=== PATIENT | male | born 2000 | race African-American/Black ===

== ENCOUNTER 2023-12-11 17:28 | Emergency (ER) | payer MEDICAID, SELFPAY ==
--- NOTE | ~2023-12-11 | XR_ITS ---
EXAMINATION: RIGHT KNEE, RIGHT TIB-FIB CLINICAL INFORMATION: Trauma COMPARISON: None available. TECHNIQUE: 2 views tib-fib, 4 views knee FINDINGS: Intramedullary lauren is present through the tibia with 2 proximal and 2 distal screws. Old fractures are seen. There are multiple metallic fragments seen in the mid calf. Please correlate with history. No soft tissue disruption is seen. The knee joint appears normal. XR/XR tibia fibula RT 2V IMPRESSION: 1. No evidence of an acute traumatic injury. 2. Old fractures with intramedullary lauren in place. 3. Multiple metallic fragments in the mid calf.
--- NOTE | ~2023-12-11 | XR_ITS ---
EXAMINATION: RIGHT KNEE, RIGHT TIB-FIB CLINICAL INFORMATION: Trauma COMPARISON: None available. TECHNIQUE: 2 views tib-fib, 4 views knee FINDINGS: Intramedullary lauren is present through the tibia with 2 proximal and 2 distal screws. Old fractures are seen. There are multiple metallic fragments seen in the mid calf. Please correlate with history. No soft tissue disruption is seen. The knee joint appears normal. XR/XR knee RT 3V IMPRESSION: 1. No evidence of an acute traumatic injury. 2. Old fractures with intramedullary lauren in place. 3. Multiple metallic fragments in the mid calf.
[2023-12-11 17:31] VITALS: BP 137/78; PULSE 68; RESP 16; TEMP 37; O2SAT 100; BMI 24.0
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
[2023-12-11 20:43] VITALS: BP 123/80; PULSE 66; RESP 17; TEMP 36.3; O2SAT 98
[2023-12-11 22:48] VITALS: BP 133/86; PULSE 62; RESP 17; TEMP 36.6; O2SAT 99
[2023-12-11] MEDS: Ibuprofen 600 MG TABLET PO (22:56)
[2023-12-11 23:34] VITALS: BP 133/86; PULSE 62; RESP 17; TEMP 36.6; O2SAT 99
== END 2023-12-11 22:45 | disposition home or self-care (01) ==
PROVIDERS: Emergency Provider Emergency Medicine
DX: S83.91XA Sprain of unspecified site of right knee, initial encounter (principal); S80.11XA Contusion of right lower leg, initial encounter; W19.XXXA Unspecified fall, initial encounter; Y93.89 Activity, other specified; Y92.219 Unspecified school as the place of occurrence of the external cause; Y99.9 Unspecified external cause status; M79.661 Pain in right lower leg; M25.561 Pain in right knee
CPT/HCPCS: 73562; 73590; 99283

== ENCOUNTER 2024-01-20 22:43 | Emergency (ER) | payer MEDICAID, SELFPAY ==
--- NOTE | ~2024-01-20 | XR_ITS ---
EXAMINATION: XR HAND/WRIST, RIGHT CLINICAL INFORMATION: Injury. COMPARISON: None TECHNIQUE: PA, lateral, and oblique views of the right hand and wrist. FINDINGS: Intra-articular fracture is evident at the ulnar aspect of the hamate with slight dorsolateral displacement of the fracture fragments. Intra-articular fracture is also suspected at the base of the fourth metacarpal. No additional fractures are identified. Soft tissues are swollen. Joint spaces appear well-preserved. Chronic posttraumatic deformity is evident at the distal ulnar diaphysis with periosteal bone hypertrophy at the adjacent ulnar margin of the distal radial diaphysis. XR/XR hand wrist RT IMPRESSION: Intra-articular fractures at the fourth and fifth CMC joint involving the fourth metacarpal base and hamate.
[2024-01-20 23:00] VITALS: BP 141/69; PULSE 64; RESP 16; TEMP 36.8; O2SAT 99; BMI 27.7
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
[2024-01-21 03:00] VITALS: BP 133/78; PULSE 61; RESP 16; TEMP 36.7; O2SAT 100
[2024-01-21 03:23] VITALS: BP 133/78; PULSE 61; RESP 16; TEMP 36.7; O2SAT 100
== END 2024-01-21 03:27 | disposition home or self-care (01) ==
PROVIDERS: Emergency Provider Emergency Medicine
DX: S62.314A Displaced fracture of base of fourth metacarpal bone, right hand, initial encounter for closed fracture (principal); W22.8XXA Striking against or struck by other objects, initial encounter; Y93.9 Activity, unspecified; Y92.9 Unspecified place or not applicable; Y99.9 Unspecified external cause status; M79.641 Pain in right hand
CPT/HCPCS: 73110; 73130; 99283

== ENCOUNTER 2024-01-28 11:59 | Outpatient (REF) | payer MEDICAID, SELFPAY | END 2024-01-28 12:00 | disposition home or self-care (01) | LOC: HO.HOSX 11:59 | PROVIDERS: Visit Provider Orthopaedic Surgery | DX: Z13.89 Encounter for screening for other disorder (principal) ==

== ENCOUNTER 2024-01-29 09:59 | Outpatient (AMB) | payer MEDICAID, SELFPAY ==
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
[2024-01-29 10:13] VITALS: BMI 27.5
== END 2024-01-29 10:49 | disposition home or self-care (01) ==
PROVIDERS: Visit Provider Orthopaedic Surgery
DX: S62.344A Nondisplaced fracture of base of fourth metacarpal bone, right hand, initial encounter for closed fracture (principal); S62.141A Displaced fracture of body of hamate [unciform] bone, right wrist, initial encounter for closed fracture
CPT/HCPCS: 25630; 99203

== ENCOUNTER 2024-01-29 12:28 | Outpatient (REF) | payer MEDICAID, SELFPAY ==
--- NOTE | ~2024-01-29 | XR_ITS ---
EXAMINATION: XR HAND, RIGHT CLINICAL INFORMATION: Pain in right hand. COMPARISON: 01/20/2024. TECHNIQUE: 5 views of the right hand. FINDINGS: Radiopaque marker placed by technologist to indicate the area of concern as indicated by the patient along the shaft of the fifth metacarpal. Redemonstration of intra-articular fracture at the ulnar aspect of the hamate with slight dorsal lateral displacement of fracture fragments. Redemonstration of intra-articular fracture at the base of the fourth metacarpal. Soft tissue swelling. Redemonstration of deformity at the distal ulnar diaphysis with periosteal bone hypertrophy at the adjacent ulnar margin of the distal radial diaphysis, likely related to prior trauma, better imaged on the prior exam. XR/XR hand RT min 3V IMPRESSION: 1. Redemonstration of intra-articular fracture at the ulnar aspect of the hamate with slight dorsal lateral displacement of fracture fragments. 2. Redemonstration of intra-articular fracture at the base of the fourth metacarpal. 3. Redemonstration of deformity at the distal ulnar diaphysis with periosteal bone hypertrophy at the adjacent ulnar margin of the distal radial diaphysis, likely related to prior trauma, better imaged on the prior exam. 4. CT scan should be considered for better visualization as visualization limited due to overlying bony structures.
== END 2024-01-29 12:29 | disposition home or self-care (01) ==
LOC: HO.HOSX 12:28
PROVIDERS: Visit Provider Orthopaedic Surgery
DX: S62.141A Displaced fracture of body of hamate [unciform] bone, right wrist, initial encounter for closed fracture (principal); S62.344A Nondisplaced fracture of base of fourth metacarpal bone, right hand, initial encounter for closed fracture
CPT/HCPCS: 25630; 73130; 99202

== ENCOUNTER 2024-04-27 12:39 | Emergency (ER) | payer MEDICAID, SELFPAY ==
--- NOTE | ~2024-04-27 | XR_ITS ---
EXAMINATION: XR HAND/WRIST, RIGHT CLINICAL INFORMATION: Pain following injury. COMPARISON: Right hand radiographs dated 01/29/2024. TECHNIQUE: PA, lateral, and oblique views of the right hand and wrist. FINDINGS: Chronic fracture at the base of the fourth metacarpal as well as at the adjacent hamate in similar anatomic alignment. The posterior fracture fragment and radial aspect of the fourth metacarpal base appear more corticated. Exact degree of healing/osseous bridging not well evaluated on plain radiographs. No new fracture or dislocation. No joint space narrowing or marginal osteophytes. No osseous erosion. Dystrophic ossification and cortical irregularity seen across the distal radioulnar syndesmosis, likely indicating sequela of remote trauma. XR/XR hand wrist RT IMPRESSION: 1. Chronic fracture at the base of the fourth metacarpal as well as at the adjacent hamate in similar anatomic alignment. Exact degree of healing/osseous bridging not well evaluated on plain radiographs. 2. No new fracture or dislocation. Electronically signed by: Nick Sheppard MD 04/27/2024 02:17 PM EDT
[2024-04-27 14:20] VITALS: BP 144/50; PULSE 67; RESP 19; TEMP 36.6; O2SAT 98; BMI 27.4
--- NOTE | 2024-04-27 14:20 | ED_ITS ---
HPI - Extremity Injury (Upper) General Chief Complaint: Extremity Injury, Upper Stated Complaint: r hand inj Time Seen by Provider: 04/27/24 14:24 Source: patient, RN notes reviewed and old records reviewed Mode of arrival: ambulatory Limitations: no limitations History of Present Illness ED Provider: Cuco Hicks PA-C HPI narrative: 23 yo right hand dominant male presents to the ER for evaluation of right hand pain after he tripped and fell onto an outstretched hand while playing soccer last night. history of fracture in the right hand in january, was seen by orthopedics. he reports pain is in the same area as his prior injury as well as in the region of his 5th metacarpal. pain is worse with movement of the digits, making a fist and lifting. no numbness, tingling, weakness. no open wounds. MD complaint: injury to: right and hand Onset (ago): day(s) (1) Other injuries: none Handedness: right Place: outdoors Severity: moderate Severity scale (1-10): 5 Relieving factors: rest Exacerbating factors: movement of extremity Context: fall and sports-related injury Associated symptoms: denies other symptoms Related Data Previous Rx's ?Medication ?Instructions ?Recorded ibuprofen 600 mg tablet 600 mg PO Q8H PRN pain #14 tabs 01/21/24 ibuprofen 600 mg tablet 600 mg PO Q8H PRN pain #14 tabs 04/27/24 Allergies Allergy/AdvReac Type Severity Reaction Status Date / Time No Known Allergies Allergy Verified 04/27/24 14:23 Review of Systems Review of Systems: Yes all other systems are reviewed and are negative [facility] Social History Social History (Updated 01/29/24 @ 10:15 by KIM Hernández) Alcohol intake: current Alcohol intake frequency: a few times a month Patient Tobacco Use Status: Current everyday Tobacco user Advance Directives: No Advance Directives Information Provided: Yes Do you have a plan to hurt others: No Plan service: No Current occupational status: student Current occupation: right hand dominant Physical Exam Vital Signs: Vital Signs: Last Vital Signs Temp 98 F 04/27/24 14:35 Pulse 67 04/27/24 14:35 Resp 19 04/27/24 14:35 BP 144/50 H 04/27/24 14:35 Pulse Ox 98 04/27/24 14:35 O2 Del Method Room Air 04/27/24 14:35 BMI result Body Mass Index 27.4 Appearance: Alert. Oriented X3. No acute distress. HEENT: normal inspection CVS: Normal heart rate and rhythm. Pulses normal. Respiratory: No respiratory distress. Skin: Skin warm and dry. Normal skin color. Normal skin turgor. No rashes. Extremities: mild generalized swelling to the dorsum of the right hand, mostly on the medical aspect. tenderness and swelling over the 4th and 5th metacarpals. no crepitus. nontender right wrist with FROM. pain is thumb adduction to the 4th and 5th digits. cap refill <3 sec. pain with hand grasp Neuro: Oriented X 3. No motor deficit. No sensory deficit. Course Course Course Narrative: This is a Rapid Medical Examination (RME) performed by Cuco Hicks PA-C in triage. Full HPI, ROS, assessment and treatment plan per primary provider in the Main ED. 23 yo right hand dominant male presents to the ER for evaluation of right hand and wrist pain after he fell while playing soccer last night. swelling and tend erness over the 4th and 5th metacarpals, limited ROM of the wrist and hand due to pain. Plan: XR hand/wrist Medical Decision Making Medical Decision Making MDM Narrative: 23 yo right hand dominant male with history of right 4th metacarpal bone fracture and hamate bone fracture in january who presents to the ER for pain in the same area after he fell while playing soccer last night. swelling and tenderness to the dorsal hand over 4th and 5th metacarpals. NV intact. XR with chronic fracture, no acute fracture appreciated. placed in wrist volar splint. will need to /fu back up with orthopedics. RICE and NSAIDs recommended. stable for d/c home Differential Diagnosis Differential Diagnoses: The differential diagnosis associated with the presentation includes hand fracture, finger fracture, hand sprain, wrist sprain, wrist fracture Independent Interpretation I performed an independent interpretation of an: Plain X-Ray Interpretation: fracture similar to prior Radiology Impression Discussion of test interpretation with radiology: I have reviewed the rad iologist's reading. Radiologist Impression: XR/XR hand wrist RT IMPRESSION: 1. Chronic fracture at the base of the fourth metacarpal as well as at the adjacent hamate in similar anatomic alignment. Exact degree of healing/osseous bridging not well evaluated on plain radiographs. 2. No new fracture or dislocation. External Record Review External record reviewed: Prior outpatient radiology Prescription Management I considered prescription management with: Pain Medication Procedures Orthopedic Splinting/Casting Injury #1: Side: right Upper Extremity Injury Location: wrist and hand Upper Extremity Immobilizer: volar splint Critical Care Time Critical Care Time Critical Care Time: No Discharge Plan Discharge Clinical Impression: Fracture of hand Qualifiers: Encounter type: sequela Fracture type: closed Laterality: right Qualified Code(s): S62.91XS - Unspecified fracture of right wrist and hand, sequela Patient Disposition: Home, Self-Care Instructions: Hand Fracture (ED) Additional Instructions: X-ray today did not show any new fractures. Recommend wearing the hand and wrist immobilizer provided at all times except when bathing. Ice and elevate when possible. Limit use of the right hand. Follow-up with Orthopedics, call for an appointment. Take the prescribed anti-inflammatories as directed, take these as needed for pain and swelling. If you develop new or worsening symptoms call 911 or come back to the ER for further evaluation. EXAMINATION: XR HAND/WRIST, RIGHT CLINICAL INFORMATION: Pain following injury. COMPARISON: Right hand radiographs dated 01/29/2024. TECHNIQUE: PA, lateral, and oblique views of the right hand and wrist. FINDINGS: Chronic fracture at the base of the fourth metacarpal as well as at the adjacent hamate in similar anatomic alignment. The posterior fracture fragment and radial aspect of the fourth metacarpal base appear more corticated. Exact degree of healing/osseous bridging not well evaluated on plain radiographs. No new fracture or dislocation. No joint space narrowing or marginal osteophytes. No osseous erosion. Dystrophic ossification and cortical irregularity seen across the distal radioulnar syndesmosis, likely indicating sequela of remote trauma. XR/XR hand wrist RT IMPRESSION: 1. Chronic fracture at the base of the fourth metacarpal as well as at the adjacent hamate in similar anatomic alignment. Exact degree of healing/osseous bridging not well evaluated on plain radiographs. 2. No new fracture or dislocation. Prescriptions: New ibuprofen 600 mg tablet 600 mg PO Q8H PRN (Reason: pain) Qty: 14 0RF No Action ibuprofen 600 mg tablet 600 mg PO Q8H PRN (Reason: pain) Qty: 14 0RF Referrals: [facility] [place] Orthopedic Surgeons [Provider Group] (1. Chronic fracture at the base of the fourth metacarpal as well as at the adjacent hamate in similar anatomic alignment. Exact degree of healing/osseous bridging not well evaluated on plain radiographs. 2. No new fracture or dislocation.) Interventions: ED Discharge Assessment Last Done: 04/27/24 14:35 Discharge Date/Time: 04/27/24 14:35 Print Language: Arabic
[2024-04-27 14:35] VITALS: BP 144/50; PULSE 67; RESP 19; TEMP 36.6; O2SAT 98
== END 2024-04-27 14:35 | disposition home or self-care (01) ==
LOC: HO.ED 14:32
PROVIDERS: Emergency Provider Emergency Medicine
DX: S62.91XA Unspecified fracture of right hand, initial encounter for closed fracture (principal); X50.9XXA Other and unspecified overexertion or strenuous movements or postures, initial encounter; Y93.66 Activity, soccer; Y92.322 Soccer field as the place of occurrence of the external cause; Y99.9 Unspecified external cause status
CPT/HCPCS: 29125; 73110; 73130; 99282; 99283

== ENCOUNTER 2024-05-05 13:41 | Outpatient (AMB) | payer MEDICAID, SELFPAY ==
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
[2024-05-05 13:53] VITALS: BMI 27.4
== END 2024-05-05 14:51 | disposition home or self-care (01) ==
PROVIDERS: Visit Provider Orthopaedic Surgery
DX: S62.344A Nondisplaced fracture of base of fourth metacarpal bone, right hand, initial encounter for closed fracture (principal); S62.141A Displaced fracture of body of hamate [unciform] bone, right wrist, initial encounter for closed fracture
CPT/HCPCS: 99214

== ENCOUNTER → 2024-05-05 13:41 | Outpatient (BNVA) | payer MEDICAID, SELFPAY | PROVIDERS: Visit Provider Orthopaedic Surgery | DX: S62.344A Nondisplaced fracture of base of fourth metacarpal bone, right hand, initial encounter for closed fracture (principal); S62.141A Displaced fracture of body of hamate [unciform] bone, right wrist, initial encounter for closed fracture; W19.XXXA Unspecified fall, initial encounter; Y93.66 Activity, soccer; Y92.9 Unspecified place or not applicable; Y99.9 Unspecified external cause status | CPT/HCPCS: 99212 ==

== ENCOUNTER 2024-06-26 16:55 | Emergency (ER) | payer MEDICAID, SELFPAY ==
[2024-06-26 17:10] VITALS: BP 109/88; PULSE 57; RESP 16; TEMP 37.4; O2SAT 98; BMI 28.5
--- NOTE | 2024-06-26 17:10 | ED_ITS ---
HPI - General Adult General Chief complaint: Eye Problems Stated complaint: Swelling both eyes Related Data Previous Rx's ?Medication ?Instructions ?Recorded ibuprofen 600 mg tablet 600 mg PO Q8H PRN pain #14 tabs 01/21/24 ibuprofen 600 mg tablet 600 mg PO Q8H PRN pain #14 tabs 04/27/24 Allergies Allergy/AdvReac Type Severity Reaction Status Date / Time No Known Allergies Allergy Verified 06/27/24 14:09 [facility] Social History Social History Alcohol intake: current Alcohol intake frequency: a few times a month Patient Tobacco Use Status: Current everyday Tobacco user Advance Directives: No Advance Directives Information Provided: No Do you have a plan to hurt others: No Plan service: No Current occupational status: student Current occupation: right hand dominant Physical Exam ED Vital Signs: BMI result Body Mass Index 28.5 Course Course Course Narrative: This is an RME done by GALDINO Perea: Additional HPI, ROS, PE not included below will be deferred to primary provider. 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 He reports his right eye is blurred. Patient reports he awoke this way. Denies trauma. Denies headache. On exam it looks like conjunctival injection. Discharge Plan Discharge Clinical Impression: Eye pain Patient Disposition: Left W/O Completing Treatment Prescriptions: No Action ibuprofen 600 mg tablet 600 mg PO Q8H PRN (Reason: pain) Qty: 14 0RF ibuprofen 600 mg tablet 600 mg PO Q8H PRN (Reason: pain) Qty: 14 0RF Discharge Date/Time: 06/26/24 21:20
== END 2024-06-26 21:20 | disposition left against medical advice (07) ==
PROVIDERS: Emergency Provider Emergency Medicine
DX: H57.13 Ocular pain, bilateral (principal); H53.8 Other visual disturbances
CPT/HCPCS: 99281

== ENCOUNTER 2024-06-27 13:57 | Emergency (ER) | payer MEDICAID, SELFPAY ==
[2024-06-27 14:06] VITALS: BP 132/54; PULSE 73; RESP 17; TEMP 36.6; O2SAT 98; BMI 26.5
--- NOTE | 2024-06-27 14:06 | ED_ITS ---
HPI - Eye Problem General Chief complaint: Eye Problems Stated complaint: eye issue Time Seen by Provider: 06/27/24 16:27 Source: patient Mode of arrival: ambulatory Limitations: no limitations History of Present Illness ED Provider: RJ SAHA PA-C HPI Narrative: 23-year-old male with no significant past medical history presents to the ED today for evaluation of vision loss and eye pain x3 weeks. Patient states that his symptoms initially began 3 weeks ago when he noticed redness, swelling, excessive tearing and irritation of his left eye. Soon after this he lost vision in the left eye which has not improved since. Around 3 days ago, he began having these initial symptoms in his right eye. Now endorses some vision loss within the right eye. Denies any eye crusting. Denies any blunt injury or trauma to the eyes. Denies history of similar. Denies fever, chills. He does not wear corrective lenses. Patient is currently involved with [employer] and reports moving [place] the [place] ago from [facility]. Denies any known medical history. Related Data Previous Rx's ?Medication ?Instructions ?Recorded ibuprofen 600 mg tablet 600 mg PO Q8H PRN pain #14 tabs 01/21/24 ibuprofen 600 mg tablet 600 mg PO Q8H PRN pain #14 tabs 04/27/24 Allergies Allergy/AdvReac Type Severity Reaction Status Date / Time No Known Allergies Allergy Verified 06/27/24 14:09 Review of Systems 2 Review of Systems: Yes all other systems are reviewed and are negative PMFSH Past Medical History Attestation statement: The following information was validated with the patient. Source: old records reviewed and nursing notes reviewed Social History Social History Alcohol intake: current Alcohol intake frequency: a few times a month Patient Tobacco Use Status: Current everyday Tobacco user Advance Directives: No Advance Directives Information Provided: No Do you have a plan to hurt others: No Plan service: No Current occupational status: student Current occupation: right hand dominant Physical Exam 2 Vital Signs: Vital Signs: Last Vital Signs Temp 98 F 06/27/24 19:03 Pulse 73 06/27/24 19:03 Resp 17 06/27/24 19:03 BP 132/54 L 06/27/24 19:03 Pulse Ox 98 06/27/24 19:03 O2 Del Method Room Air 06/27/24 19:03 BMI result Body Mass Index 26.5 vital signs stable Const: General: cooperative, healthy appearing, comfortable and no acute distress Orientation/consciousness: patient oriented x3 Limitations: no limitations HEENT: Head: Yes normal to inspection, Yes No palpable skull fracture present, Yes normocephalic and Yes atraumatic Ears: hearing grossly normal bilaterally Eyes: Other: + there is swelling noted to the upper a nd lower eyelid to right eye, noted conjunctival injection with tearing and photophobia to right. no conjunctival injection to L eye. PERRLA. + on fluorescein/tetracaine examination, there is no reuptake in either eye to suggest abrasion, FB, or ulceration. + IOP OD 18, OS 17 + on visual field examination, patient a ppears to lose vision centrally primarily in the left eye. peripheral vision intact. + VA: OD 20/70, OS 0 Neck: Neck: Yes normal visual inspection Resp: Effort & Inspection: normal respiratory effort and able to speak in complete sentences Auscultation: clear to auscultation bilaterally Cardio: Rate: regular rate Rhythm: regular rhythm Skin: General skin exam: no rashes or lesions noted Neuro: General: patient oriented x3 and gait normal Cognition (Neuro): n ormal cognition Gait exam (Neuro): Normal gait present Course Course Course Narrative: This is a rapid medical exam. deferred additional HPI, ROS, PE to primary provider. 23 yo male here with complaints of right eye pain, itchiness, blurry vision for days, reports issues with left eye vision for 1.5 months. Does not use corrective lenses or contacts. Has not had an eye exam or seen an inspector outside steam distribution. Has a PCP but has not reached out to them because he does not remember her name, phone number or location. Will need visual exam KIERRA Dasilva APRN Reevaluation(s) Reevaluation #1: I discussed case with my attending physician Dr. Sloan who has personally evaluated patient at bedside. Please refer to Dr. Sloan' note below > at this time, there is no clear etiology for patient's vision loss. He has been ambulating around the ED without difficulty. He is regularly looking at his phone to text/ call. Patients demeanor does not seem to correlate with the severity of his symptoms. Dr. Sloan did contact inspector outside steam distribution dr. luong who states he will be unable to evaluate patient in office for another 3 days. he is recommending basic blood work at this time. We feel as though patient needs closer follow-up and would benefit from urgent ophthalmic evaluation at [facility] ED. We spoke with a customer success representative from [employer] who will be arranging a ride for the patient shortly. on lab review, inflammatory markers are wnl. i reached out to the physician paralegal assistant at [facility] for report. Reevaluation #2: Attending note: I saw this patient with the physician paralegal assistant. Patient has some redness to the conjunctiva of the right eye and he is complaining of blurry vision in the right eye. He does not have any redness to the conjunctivae of the left eye. However he his complaining of even worse visual changes in the left eye. Visual acuity showed 20/70 in the right eye. The patient told me that he could not see the eye chart at all with his left eye. He says that his left eye vision is present only in the periphery and that he really can hardly see anything in the central vision. I had difficulty with funduscopic exam as the patient did not tolerate the light easily. Slit-lamp exam did not show any abnormalities to the anterior chambers of either eye. There was some injection to the conjunctiva of the right eye but no perilimbal flushing. Pupils seemed to react briskly bilaterally. Fluorescein staining was negative bilaterally. Informal bedside ultrasound not show any debris in the vitreous and no obvious abnormalities at the retina or optic nerve. Given the severity of the visual symptoms the patient was describing, particularly that he could not see the eye chart with his left eye, I am concerned that the patient should have an ophthalmology evaluation. Patient is currently at the [employer] program at the [employer]. We contacted the program and explained that a prompt Ophthalmology evaluation seemed to be indicated in this case and asked him to arrange for transportation to go to the [facility] for specialist evaluation. The [facility] was contacted by the physician paralegal assistant. Labs were done here that show a normal CRP and ESR. Medications Administered Discontinued Medications Generic Name Dose Route Start Last Admin Trade Name Freq PRN Reason Stop Dose Admin Fluorescein Sodium 1 strip 06/27/24 16:28 06/27/24 17:29 Fluorescein Sodium Strip EYE-LEFT 06/27/24 16:29 1 strip ONCE ONE Administration Tetracaine HCl 1 drop 06/27/24 16:28 06/27/24 17:29 Tetracaine Hcl/Pf 0.5% Oph Kalina 4 Ml Drops EYE-LEFT 06/27/24 16:29 1 drop ONCE ONE Administration Medical Decision Making Medical Decision Making [facility] Narrative: 23-year-old male with no significant past medical history presents to the ED today for evaluation of vision loss and eye pain x3 weeks. Vital signs stable. afebrile. He is nontoxic appearing, in NAD, lying comfortably on exam bed, texting. see physical exam portion of note for findings. Differential diagnosis includes corneal abrasion, corneal foreign body, viral vs bacterial conjunctivitis, allergic conjunctivitis, brain mass, preseptal or orbital cellulitis, acute angle closure glaucoma, iritis, keratitis, scleritis, uveitis Plan for basic labs, ocular evaluation. Differential Diagnosis Differential Diagnoses: The differential diagnosis associated with the presentation includes as above. Admission/Observation Consideration of admission/observation: Escalation of care including admission/observation considered Admission considered on presentation Consult Healthcare Provider Management of the patient was discussed with: Mining Plant Operator (Dr. Luong (inspector outside steam distribution)) Lab Data [facility] Lab Attestation statement: I reviewed the patient's lab results. as above. 06/27/24 17:59 06/27/24 17:59 Labs: Lab Results 06/27/24 Range/Units 17:59 WBC 6.1 (4.8-10.8) X10*3/uL RBC 6.60 H (4.60-5.80) X10*6/uL Hgb 14.5 (14.0-18.0) g/dl Hct 44.3 (42.0-52.0) % MCV 67.1 L (80.0-98.0) fL MCH 22.0 L (27.0-33.0) pg MCHC 32.7 (31.0-36.0) g/dl RDW 17.8 H (11.0-16.0) % Plt Count 309 (160-400) X10*3/uL MPV 9.4 (9.4-12.4) fL Absolute Nucleated RBC 0.000 (0.0-0.012) X10*3/uL Nucleated RBC % (auto) 0.0 (0.0-0.2) /100WBC Neutrophils % (Manual) 43 L (45-73) % Band Neutrophils % 0 L (3-5) % Lymphocytes % (Manual) 36 (20-40) % Atypical Lymphs % (Man) 10 H (0-6) % Monocytes % (Manual) 8 (2-11) % Eosinophils % (Manual) 2 (0-4) % Basophils % (Manual) 1 (0-2) % Abs Neuts (Manual) 2.6 (2.0-8.3) X10*3/uL Lymphocytes # (Manual) 2.2 (1.2-4.9) X10*3/uL Atyp Lymphs # (Manual) 0.6 x10*3/uL Monocytes # (Manual) 0.5 (0.1-1.2) X10*3/uL Eosinophils # (Manual) 0.1 (0.0-0.4) X10*3/uL Basophils # (Manual) 0.1 (0.0-0.2) X10*3/uL Toxic Vacuolation PRESENT Platelet Estimate NORMAL (NORMAL) Plt Morphology Comment NORMAL RBC Morphology NOTED Schistocytes 1+ (0-2) /OIF ESR 1 (0-15) MM/HR Sodium 144 (135-145) mmol/L Potassium 4.0 (3.3-5.1) mmol/L Chloride 105 (96-108) mmol/L Carbon Dioxide 30 H (22-29) mmol/L Anion Gap 13 (12-20) BUN 7 L (9-16) mg/dL Creatinine 0.82 (0.5-1.4) mg/dL Estim Creat Clear Calc 150.4 Estimated GFR > 60 Random Glucose 81 (60-115) mg/dL Calcium 9.7 (8.4-10.2) mg/dL Total Bilirubin 0.3 (0.0-1.0) mg/dL Direct Bilirubin 0.1 (0.0-0.5) mg/dL AST 27 (5-37) U/L ALT 46 H (0-40) U/L Alkaline Phosphatase 70 (39-117) U/L C-Reactive Protein < 0.10 (< or = 0.50) mg/dL Total Protein 7.5 (6.5-8.0) g/dL Albumin 4.5 (3.5-5.0) g/dL Social Determinants Patient?s care significantly limited by Social Determinants of Health including: Other Social Determinant of Health Critical Care Time Critical Care Time Critical Care Time: No Discharge Plan Discharge Clinical Impression: Vision loss of left eye Patient Disposition: Home, Self-Care Additional Instructions: You were evaluated in the ED today for vision loss in your left eye. Your work up did not reveal a clear etiology for your symptoms. We discussed with our resident program specialist who recommends you be further evaluated at a dedicated ear and eye emergency department. We have arranged with [facility] to have you transported to [facility] for further evaluation tonight. [facility]: [address] [place], [place] [id number] Prescriptions: No Action ibuprofen 600 mg tablet 600 mg PO Q8H PRN (Reason: pain) Qty: 14 0RF ibuprofen 600 mg tablet 600 mg PO Q8H PRN (Reason: pain) Qty: 14 0RF Referrals: Kenny Soares [Physician] - 3 days (vision loss left eye) Stand Alone Forms: Work/School Release Interventions: ED Discharge Assessment Last Done: 06/27/24 19:03 Discharge Date/Time: 06/27/24 19:04 Print Language: Nepali
[2024-06-27] MEDS: Fluorescein Sodium STRIP 1 STRIP EYE-LEFT (17:29)
[2024-06-27] MEDS: Tetracaine HCl/PF 0.5% Oph Sol 4 ML DROPS 1 DROP EYE-LEFT (17:29)
[2024-06-27 18:08] LABS: Baso%MD 0.8 %; Eos%MD 1.5 %; Hematocrit 44.3 % (42.0-52.0); Hemoglobin 14.5 g/dl (14.0-18.0); IG%MD 0.2 %; Mean Corpuscular HGB Conc 32.7 g/dl (31.0-36.0); Mean Corpuscular Volume 67.1 fL (80.0-98.0); Mean Platelet Volume 9.4 fL (9.4-12.4); Mono%MD 14.6 %; Neut%MD 44.9 %; Platelet Count 309 X10*3/uL (160-400); Red Cell Distribution Width 17.8 % (11.0-16.0); White Blood Count 6.1 X10*3/uL (4.8-10.8)
[2024-06-27 18:24] LABS: Alanine Aminotransferase 46 U/L (0-40); Albumin Level 4.5 g/dL (3.5-5.0); Alkaline Phosphatase 70 U/L (39-117); Anion Gap 13 (12-20); Aspartate Amino Transferase 27 U/L (5-37); Bilirubin Direct 0.1 mg/dL (0.0-0.5); Bilirubin Total 0.3 mg/dL (0.0-1.0); Blood Urea Nitrogen 7 mg/dL (9-16); C Reactive Protein < 0.10 mg/dL (< or = 0.50); Calcium 9.7 mg/dL (8.4-10.2); Carbon Dioxide 30 mmol/L (22-29); Chloride 105 mmol/L (96-108); Creatinine Clr Calc Pharmacy 150.4; Estimated Glomerular Filt Rate > 60; Glucose Random 81 mg/dL (60-115); Sodium 144 mmol/L (135-145); Total Protein 7.5 g/dL (6.5-8.0)
[2024-06-27 18:40] LABS: Atypical Lymph Absolute Manual 0.6 x10*3/uL; Atypical Lymphs Percent Manual 10 % (0-6); Band Neutrophils Percent 0 % (3-5); Basophils Abs Manual 0.1 X10*3/uL (0.0-0.2); Basophils Percent Manual 1 % (0-2); Eosinophils Absolute Manual 0.1 X10*3/uL (0.0-0.4); Eosinophils Percent Manual 2 % (0-4); Lymphocytes Absolute Manual 2.2 X10*3/uL (1.2-4.9); Lymphocytes Percent Manual 36 % (20-40); Monocytes Absolute Manual 0.5 X10*3/uL (0.1-1.2); Monocytes Percent Manual 8 % (2-11); Neutrophils Absolute Manual 2.6 X10*3/uL (2.0-8.3); Neutrophils Percent Manual 43 % (45-73)
[2024-06-27 18:43] LABS: Platelet Estimate NORMAL (NORMAL); Platelet Morphology Comment NORMAL; RBC Morphology NOTED; Schistocytes 1+ (0-2) /OIF; Toxic Vacuolation PRESENT
[2024-06-27 19:03] VITALS: BP 132/54; PULSE 73; RESP 17; TEMP 36.6; O2SAT 98
[2024-06-27 19:47] LABS: Erythrocyte Sedimentation Rate 1 MM/HR (0-15)
== END 2024-06-27 19:04 | disposition home or self-care (01) ==
PROVIDERS: Emergency Provider Emergency Medicine
DX: H54.62 Unqualified visual loss, left eye, normal vision right eye (principal); H57.12 Ocular pain, left eye; F17.200 Nicotine dependence, unspecified, uncomplicated
CPT/HCPCS: 36415; 80048; 80076; 85007; 85027; 85652; 86140; 99282; 99283

== ENCOUNTER 2024-08-24 09:30 | Emergency (ER) | payer MEDICAID, SELFPAY ==
--- NOTE | ~2024-08-24 | XR_ITS ---
EXAMINATION: XR HAND AND WRIST COMPLETE RIGHT HISTORY: fall COMPARISON: Comparison is made with the prior examination dated 04/27/2024. FINDINGS: Four views of the right hand and wrist, including a scaphoid view are submitted. Osseous mineralization is normal. Again seen are chronic fracture deformities of the base of the 4th metacarpal and the hamate, as well as the distal radius and ulna. There is no acute fracture or dislocation. The joint spaces are preserved. The soft tissues are unremarkable. XR/XR hand wrist RT IMPRESSION: No evidence of acute fracture of the right hand and wrist. Electronically signed by: Cristopher Zhu MD 08/24/2024 10:13 AM UDAY
[2024-08-24 09:36] VITALS: BP 139/54; PULSE 68; RESP 16; TEMP 37.2; O2SAT 98; BMI 28.4
--- OUTSIDE RECORDS SUMMARY | 2024-08-24 13:32 | XMS_ITS | Clinical Summary ---
Author Organization [facility] ity Address [address] [place] [address] Care Team Providers Care Sand Slinger Operator Name Role Phone Unavailable Primary Care Provider Unavailabl e Social History Tobacco Use Types Packs/Day Years Used Date Smoking Tobacco: Never Assessed Sex and Gender Information Value Date Recorded Sex Assigned at Not on file Gender Identity Not on file Sexual Orientation Not on file Plan of Treatment Health Maintenance Due Date Last Done Comments HPV Vaccines (1 - Male 3-dos e series) 2016 DTaP,Tdap,and Td Vaccines (1 - Tdap) 2020 Hepatitis B Vaccines (1 of 3 - 19+ 3-dose series) 2020 Depression Screening 02/12/2024 HIV Screening 02/12/2024 Hepatitis C Screening 02/12/2024 Social Influencers of Health Screening 02/12/2024 COVID-19 Vaccine ( - 2023-2 5 season) 2024 Influenza Vaccine (#1) 2024 HIB Vaccines Aged Out No longer eligi ble based on patient's age to complete this topic Hepatitis A Vaccines Aged Out No long er eligible based on patient's age to complete this topic IPV Vaccines Aged Out No longer eligi ble based on patient's age to complete this topic MMR Vaccines Aged Out No longer eligi ble based on patient's age to complete this topic Meningococcal ACWY Vaccine Aged Out N o longer eligible based on patient's age to complete this topic Pneumococcal Vaccine: Pediat rics (0 to 5 Years) and At-Risk Patients (6 to 64 Years) Aged Out No longer eligible b ased on patient's age to complete this topic RSV Immunization Patients Un kvng 20 months Aged Out No longer eligible b ased on patient's age to complete this topic Varicella Vaccines Aged Out No longer eligible based on patient's age to complete this topic
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
--- OUTSIDE RECORDS SUMMARY | 2024-08-24 13:32 | XMS_ITS | Encounter Summary ---
Author Organization [facility] Address [address] [place] [address] Care Team Providers Care Airline Pilot Flight Instructor Name Role Phone Odilia Simon PA-C Primary Care Provider [phone] Encounter Details Date Type Department Care Team (Latest Contact Info) Description 08/05/2024 Travel Social History Tobacco Use Types Packs/Day Years Used Date Smoking Tobacco: Every Day Cigarettes Passive Smoke Exposure: Never Smokeless Tobacco: Never Alcohol Use Standard Drinks/Week Comments Never 0 [...] AM EST documented as of this encounter Plan of Treatment Not on file documented as of this encounter Visit Diagnoses Not on filedocumented in this encounter Additional Health Concerns Assessment Noted Time PHQ-9 Depression Total Score: 0 08/05/19 25 11:29 AM PST documented as of this encounter Care Teams Airline Pilot Flight Instructor Relationship Specialty Start Date End Date Odilia Simon PA-C [facility] [place] [address] PCP - General Primary Care 01/22/24 documented as of this encounter
== END 2024-08-24 13:15 | disposition left against medical advice (07) ==
PROVIDERS: Emergency Provider Emergency Medicine
DX: M25.531 Pain in right wrist (principal); M79.641 Pain in right hand
CPT/HCPCS: 73110; 73130; 99281

== ENCOUNTER → 2024-08-24 10:05 | Outpatient (BNV) | payer MEDICAID, SELFPAY | PROVIDERS: Visit Provider Radiology Diagnostic Radiology | DX: S69.91XA Unspecified injury of right wrist, hand and finger(s), initial encounter (principal) | CPT/HCPCS: 73110; 73130 ==

== ENCOUNTER 2024-10-20 08:58 | Emergency (ER) | payer MEDICAID, SELFPAY ==
--- NOTE | ~2024-10-20 | XR_ITS ---
EXAMINATION: XR CHEST 2 VIEWS HISTORY: coughing up blood COMPARISON: There are no prior studies for comparison. FINDINGS: PA and lateral views of the chest are submitted. The lungs are expanded and clear. There is no pleural effusion, pneumothorax, or pulmonary vascular congestion. The heart is normal in size. The bones are intact. XR/XR chest 2V IMPRESSION: Clear lungs. Electronically signed by: Cristopher Zhu MD 10/20/2024 10:06 AM EDT
[2024-10-20 09:04] VITALS: BP 144/45; PULSE 70; RESP 16; TEMP 37.2; O2SAT 97; BMI 27.6
[2024-10-20 09:32] LABS: IDNOW Serial# 58CA691E; Strep A Nucleic Acid Negative (Negative)
[2024-10-20 10:05] LABS: Influenza A PCR NEGATIVE (Negative); Influenza B PCR NEGATIVE (Negative); Resp Syncy Virus RNA Qual PCR POSITIVE (Negative); SARS COV2 PCR INHOUSE NEGATIVE (Negative)
--- OUTSIDE RECORDS SUMMARY | 2024-10-20 10:16 | XMS_ITS | Clinical Summary ---
Author Organization [facility] Address [address] [place] [address] Care Team Providers Care Asphalt Blender Name Role Phone Unavailable Primary Care Provider Unavailabl e Social History Tobacco Use Types Packs/Day Years Used Date Smoking Tobacco: Never Assessed Sex and Gender Information Value Date Recorded Sex Assigned at Not on file Legal Sex Male 1:37 PM EDT Gender Identity Not on file Sexual Orientation Not on file Plan of Treatment Health Maintenance Due Date Last Done Comments HPV Vaccines (1 - Male 3-dos e series) 2016 Meningococcal B Vacine (1 of 2 - Standard) 2017 DTaP,Tdap,and Td Vaccines (1 - Tdap) 2020 Hepatitis B Vaccines (1 of 3 - 19+ 3-dose series) 2020 Depression Screening 02/12/2024 HIV Screening 02/12/2024 Hepatitis C Screening 02/12/2024 Social Influencers of Health Screening 02/12/2024 COVID-19 Vaccine (1 - 2023-2 5 season) 2024 Influenza Vaccine [...]
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
--- NOTE | 2024-10-20 10:18 | ED_ITS ---
HPI - URI/Sore Throat General Chief Complaint: Upper Respiratory Symptoms Stated Complaint: Coughing up blood Time Seen by Provider: 10/20/24 10:18 Source: patient Mode of arrival: ambulatory Limitations: no limitations History of Present Illness ED Provider: RJ SAHA PA-C HPI Narrative: 23 year old male with no significant pmhx presents to the ED today for evaluation of productive cough x3 days. Cough is productive of yellow/green sputum. Reports intermittent streaks of blood in his sputum. Reports throat discomfort secondary to coughing. Reports chest discomfort on coughing only. Denies chest pain, palpitations or shortness of breath. Denies fever, myalgias, chills, headache, nausea or vomiting. No known sick contacts. Patient was born in [facility]. He has tested negative for TB in the past. Denies weight loss, fevers, fatigue, decreased appetite, rashes, swollen LN. No recent travel outside [place]. Related Data Previous Rx's ?Medication ?Instructions ?Recorded ibuprofen 600 mg tablet 600 mg PO Q8H PRN pain #14 tabs 01/21/24 ibuprofen 600 mg tablet 600 mg PO Q8H PRN pain #14 tabs 04/27/24 azithromycin 250 mg tablet See Rx Instructions PO .COMPLEX #6 10/20/24 tabs guaifenesin 200 mg tablet 200 mg PO TID PRN cough #10 tabs 10/20/24 Allergies Allergy/AdvReac Type Severity Reaction Status Date / Time No Known Allergies Allergy Verified 10/20/24 09:06 [facility] Social History Social History Alcohol intake: current Alcohol intake frequency: a few times a month Patient Tobacco Use Status: Current everyday Tobacco user Advance Directives: No Advance Directives Information Provided: Yes service: No Current occupational status: student Current occupation: right hand dominant Physical Exam Vital Signs: Vital Signs: Last Vital Signs Temp 99.0 F 10/20/24 09:04 Pulse 70 10/20/24 09:04 Resp 16 10/20/24 09:04 BP 144/45 H 10/20/24 09:04 Pulse Ox 97 10/20/24 09:04 O2 Del Method Room Air 10/20/24 09:04 BMI result Body Mass Index 27.6 hypertensive, afebrile, not hypoxic General: Well appearing, in no acute distress. Skin: Warm, dry, intact. No rashes or lesions. Head: Normocephalic, atraumatic. EENT: Hearing is intact b/l. Conjunctiva clear. PERRLA. EOM intact. Moist mucous membranes.?posterior oropharynx wnl. Cardiac: Chest wall symmetric. RRR Lungs: Normal respiratory effort without accessory muscle use. congested cough. CTA bilaterally. No rales, rhonchi, or wheezes.? Abdomen: Soft, non-tender, non-distended. No rebound tenderness or guarding. Positive BS x4. Back: No midline spinous or paraspinal tenderness. No step off deformity. Ext: Upper and lower extremities atraumatic, without tenderness, deformity, swelling or erythema Neuro: AOx3. Normal speech. Ambulating with steady gait Course Course Course Narrative: negative covid, flu. positive for RSV. cxr without infiltrate or consolidation. not hypoxic. well appearing. discussed symptomatic tx. Patient has remained stable throughout ED visit today. Discussed worrisome signs and symptoms and when to return to the ED. All questions answered at this time. Patient is agreeable with disposition and stable for discharge. Medications Administered Discontinued Medications Generic Name Dose Route Start Last Admin Trade Name Freq PRN Reason Stop Dose Admin Guaifenesin 10 ml 10/20/24 10:31 10/20/24 10:43 Guaifenesin 200 Mg/10 Ml 10 Ml Liquid PO 10/20/24 10:32 10 ml ONCE ONE Administration Medical Decision Making Medical Decision Making [facility] Narrative: 23 year old male with no significant pmhx presents to the ED today for evaluation of productive cough x3 days. Hypertensive to 144/45, vitals otherwise WNL. Afebrile. He is nontoxic appearing in no acute distress. no respiratory distress, no tropoding. congested cough. lungs without adventitious breath sounds. posterior oropharynx wnl. b/l EACs and TMs intact. Differential diagnosis includes viral syndrome, strep, bronchitis, pneumonia. Unlikely TB, PE. Plan for viral/strep swabs, cxr. Differential Diagnosis Differential Diagnoses: The differential diagnosis associated with the presentation includes as above. Admission/Observation not indicated. Lab Data [facility] Lab Attestation statement: I reviewed the patient's lab results. as above Labs: Lab Results 10/20/24 Range/Units 09:12 Influenza Type A (PCR) NEGATIVE (Negative) Influenza Type B (PCR) NEGATIVE (Negative) RSV RNA Qual (PCR) POSITIVE A (Negative) SARS-CoV-2 RNA (RT-PCR) NEGATIVE (Negative) S. pyogenes GrpA MONICA Negative (Negative) Independent Interpretation I performed an independent interpretation of an: Plain X-Ray Interpretation: cxr without infiltrate or consolidation Radiology Impression Discussion of test interpretation with radiology: I have reviewed the radiologist's reading. Radiologist Impression: Procedure(s): XR chest 2V Accession Number(s): [id number] cc: Generic ED Physician; Physician,Unknown ~ EXAMINATION: XR CHEST 2 VIEWS HISTORY: coughing up blood COMPARISON: There are no prior studies for comparison. FINDINGS: PA and lateral views of the chest are submitted. The lungs are expanded and clear. There is no pleural effusion, pneumothorax, or pulmonary vascular congestion. The heart is normal in size. The bones are intact. XR/XR chest 2V IMPRESSION: Clear lungs. Electronically signed by: Cristopher Zhu MD 10/20/2024 10:06 AM EDT External Record Review External record reviewed: Inpatient record Prescription Management I considered prescription management with: Antibiotic Social Determinants Patient?s care significantly limited by Social Determinants of Health including: Other Social Determinant of Health Critical Care Time Critical Care Time Critical Care Time: No Discharge Plan Discharge Clinical Impression: Respiratory syncytial virus (RSV) Patient Disposition: Home, Self-Care Instructions: Azithromycin (By mouth), Respiratory Syncytial Virus (ED) Additional Instructions: You tested positive for RSV today. See home care instructions. You tested negative for covid, flu, and strep throat. Given the blood in your phlegm, I am covering you with an antibiotic.. Azithromycin has been sent to your pharmacy. Take this as prescribed over the next 5 days. Guaifenesin as a cough medicine that has been sent to your pharmacy. Take this as needed. You may take Tylenol/Motrin as needed for pain or fevers. Please follow up with your primary care provider. If you do not have on, a referral has been provided to you. Return with any new or worsening symptoms. In the case of an emergency call 911. Prescriptions: New azithromycin 250 mg tablet See Rx Instructions .ROUTE .COMPLEX Qty: 6 0RF Rx Instructions: For 250 mg dose pack: take 500 mg today (day 1), then 250 mg for 4 days (days 2-5) guaifenesin 200 mg tablet 200 mg PO TID PRN (Reason: cough) Qty: 10 0RF No Action ibuprofen 600 mg tablet 600 mg PO Q8H PRN (Reason: pain) Qty: 14 0RF ibuprofen 600 mg tablet 600 mg PO Q8H PRN (Reason: pain) Qty: 14 0RF [place]: [facility] [place] Group] [facility] [place] [Provider Group] [facility] [place] [Provider Group] Physician,Unknown J [Primary Care Provider] - Stand Alone Forms: Work/School Release Discharge Date/Time: 10/20/24 10:53 Print Language: Samoan
[2024-10-20] MEDS: guaiFENesin 200 MG/10 ML 10 ML LIQUID PO (10:43)
== END 2024-10-20 10:53 | disposition home or self-care (01) ==
PROVIDERS: Emergency Provider Emergency Medicine
DX: R05.9 Cough, unspecified (principal); B97.4 Respiratory syncytial virus as the cause of diseases classified elsewhere; Z03.818 Encounter for observation for suspected exposure to other biological agents ruled out
CPT/HCPCS: 0241U; 71046; 87651; 99281; 99283

== ENCOUNTER → 2024-10-20 09:08 | Outpatient (BNV) | payer SELFPAY | PROVIDERS: Emergency Provider Emergency Medicine; Visit Provider Radiology Diagnostic Radiology | DX: R04.2 Hemoptysis (principal) | CPT/HCPCS: 71046 ==

== ENCOUNTER 2025-01-16 22:42 | Emergency (ER) | payer MEDICAID, SELFPAY ==
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
[2025-01-16 22:53] VITALS: BP 133/71; PULSE 75; RESP 18; TEMP 37.1; O2SAT 98; BMI 27.2
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
[2025-01-17] MEDS: Ibuprofen 600 MG TABLET PO (03:18)
--- NOTE | 2025-01-17 04:46 | PC.NURSE ---
pt left without discharge papers
[2025-01-17 05:42] VITALS: BP 133/71; PULSE 75; RESP 18; TEMP 37.1; O2SAT 98
== END 2025-01-17 05:43 | disposition home or self-care (01) ==
LOC: HO.ED 01-17 04:54
PROVIDERS: Emergency Provider Internal Medicine
DX: M79.604 Pain in right leg (principal)
CPT/HCPCS: 73590; 99283

== ENCOUNTER → 2025-01-17 02:49 | Outpatient (BNV) | payer MEDICAID, SELFPAY | PROVIDERS: Emergency Provider Internal Medicine; Visit Provider Radiology Vascular & Interventional Radiology | DX: Z98.890 Other specified postprocedural states (principal) | CPT/HCPCS: 73590 ==

== ENCOUNTER 2025-03-22 01:48 | Emergency (ER) | payer MEDICAID, SELFPAY ==
--- NOTE | ~2025-03-22 | CT_ITS ---
CLINICAL HISTORY: headache CT head without contrast Comparison: None Findings: No acute hemorrhage, acute major vascular distribution infarct, intracranial mass, midline shift or hydrocephalus. No extra-axial fluid collection. Mucoperiosteal thickening of the right maxillary sinus, other visualized paranasal sinuses and mastoid air cells normal. Orbits unremarkable. The cranium appears intact. Superficial soft tissue is unremarkable. Impression: 1. No acute intracranial finding. This document has been electronically signed by: Nathalie Harris MD on 03/22/2025 08:17:21
[2025-03-22 01:56] VITALS: BP 137/83; PULSE 84; RESP 18; TEMP 36.6; O2SAT 97; BMI 28.2
--- OUTSIDE RECORDS SUMMARY | 2025-03-22 02:25 | XMS_ITS | Clinical Summary ---
Author Organization [facility] Address [address] [place] [id number] Phone Care Team Providers Care Media Liaison Officer Name Role Phone Pcp, Not Required Primary Care Provider Unavaila ble Allergies No known active allergies Medications diclofenac sodium (VOLTAREN) 1 % Gel Apply 2 g topically. 06/22/2024 Active acetaminophen (TYLENOL) 500 MG tablet Take 500 mg by mouth every 6 (six) hours as needed. 06/22/2024 Active naproxen (NAPROSYN) 500 MG tablet Take 1 tablet (500 mg total) by mouth 2 (two) times a day with meals. 20 tablet 06/28/2024 Active olopatadine (PATADAY) 0.2 % Drop Place 1 drop into each eye daily. 5 mL 3 07/03/2024 Active Social History Tobacco Use Types Packs/Day Years Used Date Smoking Tobacco: Never Smokeless Tobacco: Never Tobacco Cessation:Counseling Given: Not Answered Alcohol Use Standard Drinks/Week Comments Yes 0 (1 standard drink = 0.6 oz pur e alcohol) rarely Education Answer Date Recorded Are you interested in more education? Not on walter e 06/27/2024 Are you concerned about learning? Not on file 06/27/2024 No 06/27/2024 No 06/27/2024 Digital Access Answer Date Recorded No 06/27/2024 No 06/27/2024 Reliable internet access at home? Not on file 06/27/2024 Device with a working camera? Not on file Intimate Partner Violence Answer Date R ecorded Are you denied basic needs s uch as food, clothing, or medical care? No 06/29/2024 In the past 12 months have y ou been in a relationship with a person who hurts, threatens, or tries to control you? No 06/29/2024 Are you denied basic needs s uch as food, clothing, or medical care? No 06/29/2024 In the past 12 months have y ou been in a relationship with a person who hurts, threatens, or tries to control you? No 06/29/2024 Sex and Gender Information Value Date Recorded Sex Assigned at Male 06/27/2024 10:41 PM EST Legal Sex Male 9:49 PM EST Gender Identity Male 06/27/2024 10:41 PM EST Sexual Orientation Straight 06/27/2024 10 :41 PM EST Last Filed Vital Signs Vital Sign Reading Time Taken Comments Blood Pressure 139/84 07/03/2024 8:25 AM EST Pulse 69 07/03/2024 8:25 AM EST Temperature 36.2 C (97.2 F) 06/29/2024 8:59 AM EST Respiratory Rate 16 07/03/2024 8:25 AM EST Oxygen Saturation 98% 07/03/2024 8:25 AM EST Inhaled Oxygen Concentration - - Weight 83.5 kg (184 lb) 07/03/2024 8:25 AM EST Height 180.3 cm (5' 11 ) 07/03/2024 8:25 AM EST Body Mass Index 25.66 07/03/2024 8:25 AM EST Plan of Treatment Not on file Medical Devices Not on file Insurance [facility] [address] [place] [address] [place] [address] C3 ACO [facility] C3 ACO Care Teams Media Liaison Officer Relationship Specialty Start Date End Date Pcp, Not Required [address] [place] [id number] PCP - General 06/27/24 Additional Source Comments The information contained in this document represents components of the legal health record. It is not the complete legal health record.[facility]
--- OUTSIDE RECORDS SUMMARY | 2025-03-22 02:25 | XMS_ITS | Clinical Summary ---
Author Organization [facility] Address [address] [place] [address] Phone Care Team Providers Care Tile Molder Hand Name Role Phone Physician, Pcp Unknown Primary Care Provider Nara vailable Social History Tobacco Use Types Packs/Day Years Used Date Smoking Tobacco: Never Assessed Sex and Gender Information Value Date Recorded Sex Assigned at Not on file Legal Sex Male 1:37 PM EDT Gender Identity Not on file Sexual Orientation Not on file Plan of Treatment Health Maintenance Due Date Last Done Comments Meningococcal B Vaccine (1 o f 2 - Standard) 2017 Hepatitis B Vaccines (2 of 2 - CpG 2-dose series) 11/18/2023 10/21/2023, 02/15/2023 HIV Screening 02/12/2024 Social Influencers of Health Screening 02/12/2024 COVID-19 Vaccine (1 - 2023-2 5 season) 2024 Depression Screening 07/22/2024 HPV Vaccines (3 - Male 3-dos e series) 10/28/2024 08/05/2024, 10/21/2023 Influenza Vaccine (#1) 2025 03/17/2024 Cholesterol Screening (Lipid Panel) 11/10/2029 11/10/2024, 11/10/2024 DTaP,Tdap,and Td Vaccines (3 - Td or Tdap) 08/07/2033 08/07/2023, 02/15/2023 MMR Vaccines Aged Out 02/15/2023 No longer eligi ble based on patient's age to complete this topic Hepatitis C Screening Completed 08/07/2023 Pneumococcal Vaccine: Pediatrics (0 to 5 Years) and At-Risk Patients (6 to 49 Years) Completed 10/21/2023 HIB Vaccines Aged Out No longer eligi [...] to complete this topic RSV Immunization Patients Under 20 months Aged Out No longer eligible b ased on patient's age to complete this topic Varicella Vaccines Aged Out No longer eligible based on patient's age to complete this topic Insurance MEDICAID - [place] Care Teams Tile Molder Hand Relationship Specialty Start Date End Date Physician, Pcp Unknown PCP - General 11/26/24
--- OUTSIDE RECORDS SUMMARY | 2025-03-22 02:27 | XMS_ITS | Clinical Summary ---
Author Organization [employer] Address [address] [place] [address] Care Team Providers Care Paid Search Manager Name Role Phone Unavailable Primary Care Provider Unavailabl e Encounters Date Type Department Care Team Description 02/09/2025 Population Health Risk Score [facility] ([facility]) Department [address] [id number] Provider, Population Health Generic from Last 3 Months Social History Tobacco Use Types Packs/Day Years Used Date Smoking Tobacco: Never Assessed Sex and Gender Information Value Date Recorded Sex Assigned at Not on file Legal Sex Male 2:18 AM EDT Gender Identity Not on file Sexual Orientation Not on file Plan of Treatment Health Maintenance Due Date Last Done Comments Chlamydia and Gonorrhea Screening 2001 Depression Screening 2001 SDOH Screening 2001 Disability Screening 2001 Alcohol/Substance Use Screening 2013 Tobacco Screening 2013 Family Planning (PISQ) 2016 Meningococcal B Vaccine (1 o f 2 - Standard) 2017 Hepatitis C Screening 10/31/2019 Hepatitis B Vaccines (2 of 2 - CpG 2-dose series) 11/18/2023 10/21/2023, 02/15/2023 COVID-19 Vaccine (1 - 2023-2 5 season) 2024 HPV Vaccines (3 - Male 3-dos e series) 10/28/2024 08/05/2024, 10/21/2023 Influenza Vaccine (#1) 2025 03/17/2024 DTaP/Tdap/Td Vaccines (3 - T d or Tdap) 08/07/2033 08/07/2023, 02/15/2023 Zoster Vaccines (1 of 2) 10/31/2051 RSV Patients and Patients Aged 60 years or older (1 - 1-dose 75+ series) 2076 HIV Screening Completed 08/07/2023, 08/07/2023 Pneumococcal Vaccine: Pediatrics (0 to 5 Years) and At-Risk Patients (6 to 49) Years Aged Out 10/21/2023 No longer eligible b ased on patient's age to complete this topic HIB Vaccines Aged Out No longer eligi ble based on patient's age to complete this topic Hepatitis A Vaccines Aged Out No long er eligible based on patient's age to complete this topic IPV Vaccines Aged Out No longer eligi ble based on patient's age to complete this topic Meningococcal Vaccine Aged Out No abhilash augusto eligible based on patient's age to complete this topic RSV under 20 months Aged Out No longe r eligible based on patient's age to complete this topic Rotavirus Vaccines Aged Out No longer eligible based on patient's age to complete this topic
--- OUTSIDE RECORDS SUMMARY | 2025-03-22 02:27 | XMS_ITS | Encounter Summary ---
Author Organization [facility] Address [address] [place] [id number] Phone Care Team Providers Care Supervisor Crack Off Name Role Phone Pcp, Not Required Primary Care Provider Unavaila ble Encounter Details Date Type Department Care Team ([facility] st Contact Info) Description 06/27/2024 Ophth Exam PAT Emergency Department [address] [place] [address] Wilbur Dobbins MD [address] [place] [address] [email or web address] Social History Tobacco Use Types Packs/Day Years Used Date Smoking Tobacco: Never Smokeless Tobacco: Never Alcohol Use Standard Drinks/Week Comments Yes 0 [...] Orientation Straight 06/27/2024 10 :41 PM EST documented as of this encounter Functional Status * Calculated C-SSRS Risk Score (Lifetime/Recent) Answer Date of Assessment Author No Risk Indicated 06/29/2024 8:58 AM Kirt Downs RN * [place] Suicide Severity Rating Scale (Screener/Recent Self-Report) Question Answer Date of Assessment Author 1. Wish to be (Past 1 Month) No 06/29/2024 8:58 AM Kirt Claudio, RON 2. Non-Specific Active Suicidal Thoughts (Past 1 Month) No 06/29/2024 8:58 AM Kirt Claudio RN 6. Suicidal Behavior (Lifetime) No 06/29/2024 8:58 AM Kirt Claudio RN documented as of this encounter Plan of Treatment Not on file documented as of this encounter Visit Diagnoses Not on filedocumented in this encounter Care Teams Supervisor Crack Off Relationship Specialty Start Date End Date Pcp, Not Required [address] [place] [id number] PCP - General 06/27/24 documented as of this encounter Additional Source Comments The information contained in this document represents components of the legal health record. It is not the complete legal health record.[facility]
--- OUTSIDE RECORDS SUMMARY | 2025-03-22 02:27 | XMS_ITS | Encounter Summary ---
Author Organization [facility] Address [address] [place] [address] Care Team Providers Care Stenciler Name Role Phone Odilia Simon PA-C Primary Care Provider Encounter Details Date Type Department Care Team (Late st Contact Info) Description 12/25/2024 Patient Outreach [facility] [address] [place] [address] [place] [address] [place], [place] [id number] Social History Tobacco Use Types Packs/Day Years Used Date Smoking Tobacco: Former Cigarettes Q uit: 02/2024 Passive Smoke Exposure: Never Smokeless Tobacco: Never Alcohol Use Standard Drinks/Week Comments Never 0 (1 standard drink = 0.6 oz pur e alcohol) Social Connections Answer Date Recorded How often do you feel lonely or isolated from th ose around you? 1 08/05/2024 Financial Resource Strain Answer Date R ecorded Hard to pay for: Utilities 2 08/05 Stress Answer Date Recorded Do you feel these kinds of stress these days? 1 08/05/2024 Physical Activity Answer Date Recorded Physical Activity 0 07/04/2023 Food Insecurity Answer Date Recorded Within the past 12 months, t he food you bought just didn't last and you didn't have enough money to get more. 2 08/05/19 Transportation Needs Answer Date Record ed Hard to pay for: Transportation 2 08/05/2024 Housing Stability Answer Date Recorded Hard to pay for: Rent/Mortgage payment 2 08/05/2024 Safety and Environment Answer Date Vamshi rded Safety 0 07/04/2023 Utilities Answer Date Recorded Hard to pay for: Utilities 2 08/05 Employment Answer Date Recorded Stress 0 04/04/2024 Sex and Gender Information Value Date Recorded Sex Assigned at Male 08/08/2023 6:18 PM PST Legal Sex Male 10:39 AM PST Gender Identity Male 08/08/2023 6:18 PM PST Sexual Orientation Straight 08/08/2023 6: 18 PM PST documented as of this encounter Plan of Treatment Upcoming Encounters Date Type Department Care Team (Late st Contact Info) Description 03/29/2025 2:20 PM EDT Office Visit [facility] [address] [place] [address] Steve Cordero DDS [address] [place] [address] documented as of this encounter Visit Diagnoses Not on filedocumented in this encounter Additional Health Concerns Assessment Noted Time PHQ-9 Depression Total Score: 0 08/05/19 25 11:29 AM PST A Depression follow-up plan has been documented for the patient 08/05/2024 12:30 PM PST documented as of this encounter Care Teams Stenciler Relationship Specialty Start Date End Date Odilia Simon PA-C [address] [place] [address] PCP - General Primary Care 01/22/24 documented as of this encounter
--- NOTE | 2025-03-22 05:17 | PC.NURSE ---
Pt currently resting comfortably in stretcher with eyes closed, respirations even and unlabored and no distress. He was previously medicated with tylenol for headache reports as he awaits primary MD evaluation. The pt has the call canela in reach, lights have been dimmed for comfort and RN/staff will continue to monitor.
[2025-03-22 05:53] VITALS: BP 131/71; PULSE 59; RESP 14; TEMP 36.6; O2SAT 98
[2025-03-22] MEDS: Butalb/Acetamin/Caff 50/325/40 TABLET 1 TAB PO (06:52)
--- NOTE | 2025-03-22 07:07 | ED_ITS ---
HPI - Headache General Chief Complaint: Headache Stated Complaint: Headache Time Seen by Provider: 03/22/25 06:09 Source: patient Mode of arrival: ambulatory Limitations: no limitations History of Present Illness ED Provider: HPI Narrative: 24-year-old otherwise healthy presenting with what he reports as a headache for the past 2 months waking him up from sleep, he reports to be intermittently dizzy and having blurred vision, he states he saw his PCP and prescribed sumatriptan and ibuprofen that he took without much relief, he also states he has a broken tooth has not seen a dentist for it, but there was no swelling there is no drainage she is able to eat has had no voice changes. No weakness in upper or lower extremities and no sensory deficits reported. Related Data Previous Rx's ?Medication ?Instructions ?Recorded ibuprofen 600 mg tablet 600 mg PO Q8H PRN pain #14 t abs 01/21/24 ibuprofen 600 mg tablet 600 mg PO Q8H PRN pain #14 t abs 04/27/24 azithromycin 250 mg tablet See Rx Instructions PO .COM PLEX #6 10/20/24 tabs guaifenesin 200 mg tablet 200 mg PO TID PRN cough #10 tabs 10/20/24 ibuprofen 600 mg tablet 600 mg PO Q6H PRN fever or p ain 01/17/25 #30 tabs Allergies Allergy/AdvReac Type Severity Reaction Status Date / Time No Known Allergies Allergy Verified 03/22/25 01:59 Review of Systems Constitutional: Constitutional: Reports as per [facility] Social History Social History Alcohol intake: current Alcohol intake frequency: a few times a month Patient Tobacco Use Status: Current everyday Tobacco user Smoked in Last 30 Days: No Substance Use Type: Marijuana Advance Directives: No Advance Directives Information Provided: Yes service: No Current occupational status: student Current occupation: right hand dominant Physical Exam Vital Signs: Vital Signs: Last Vital Signs Temp 97.9 F 03/22/25 07:25 Pulse 54 03/22/25 07:25 Resp 16 03/22/25 07:25 BP 142/73 H 03/22/25 07:25 Pulse Ox 99 03/22/25 07:25 O2 Del Method Room Air 03/22/25 07:25 BMI result Body Mass Index 28.2 Const: Other: * Gen: ?Overall well-appearing patient * HEENT: PERRLA, EOMI, no trismus, no facial edema * Neck: Supple, no LAD, no tenderness along temporal aspect of the skull * CV: RRR, no obvious murmurs appreciated * Resp: ?No wheezing rales rhonchi no stridor moving air well * Abd: ?Bowel sounds are present, no tenderness no rebound no rigidity * MSK: FROM, strength 5/5 all extremities * Skin: Warm, dry, intact, * Neuro: ?Alert and oriented x3, moving upper and lower extremities symmetrically, no obvious facial asymmetry noted, no sensory deficits upper or lower extremities Medications Administered Discontinued Medications Generic Name Dose Route Start Last Admin Trade Name Lake PRN Reason Stop Dose Admin Acetaminophen 650 mg 03/22/25 02:25 03/22/25 02:46 Acetaminophen 325 Mg Tablet PO 03/22/25 02:26 650 mg ONCE ONE Administration Acetaminophen/Butalbital/Caffeine 1 tab 03/22/25 06:31 03/22/25 06:52 Butalb/Acetamin/Caff 50/325/40 Tablet PO 03/22/25 06:32 1 tab ONCE ONE Administration Ketorolac Tromethamine 15 mg 03/22/25 06:31 03/22/25 06:52 Ketorolac Tromethamine 15 Mg/Ml Vial IM 03/22/25 06:32 15 mg ONCE ONE Administration Medical Decision Making Medical Decision Making [facility] Narrative: I think both of the primarily concerns to make sure this young person does not have any underlying brain mass, as he reports headaches waking him up from sleep for the past 2 months he has been using medications for migraines and did not report any imaging done on outpatient basis, I will obtain a CT of the brain, he has no neurologic deficits, no pupillary deficits, he is although roll healthy individual, he did exhibit some photosensitivity, 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 but there was no facial swelling or trismus or anything else to suspect that his headache is related to broken tooth and if it is he will need to follow up with the dentist, otherwise no evidence for deep space infection of the oropharynx or the neck, symptomatic control, imaging and if imaging is negative anticipating discharge, he was seen for reports of visual loss which he was evaluated for last year, at that point he had unremarkable blood work and inflammatory markers I do not see utility of repeating doses I do not have any suspicion for vasculitis and this otherwise healthy individual 09:00 patient re-evaluated, he feels better discussed discharge instructions with him Differential Diagnosis Differential Diagnoses: The differential diagnosis associated with the presentation includes (See above) Admission/Observation Consideration of admission/observation: Escalation of care including admission/observation considered Independent Interpretation I performed an independent interpretation of an: CT Scan (Appears to have normal brain anatomy consistent with his age, will await for official report, my independent interpretation) Radiology Impression Discussion of test interpretation with radiology: I have reviewed the radiologist's reading. ( Impression: 1. No acute intracranial finding.) Tests considered The following testing was considered but not selected: CBC, CMP, ESR, CRP Prescription Management I considered prescription management with: Pain Medication and Antibiotic Discharge Plan Discharge Clinical Impression: Headache Patient Disposition: Home, Self-Care Additional Instructions: Less screen time, keep hydrated, CT brain negative, take care of your broken tooth, follow up with your PCP and dentist Prescriptions: No Action ibuprofen 600 mg tablet 600 mg PO Q8H PRN (Reason: pain) Qty: 14 0RF ibuprofen 600 mg tablet 600 mg PO Q6H PRN (Reason: fever or pain) Qty: 30 0RF ibuprofen 600 mg tablet 600 mg PO Q8H PRN (Reason: pain) Qty: 14 0RF azithromycin 250 mg tablet See Rx Instructions .ROUTE .COMPLEX Qty: 6 0RF Rx Instructions: For 250 mg dose pack: take 500 mg today (day 1), then 250 mg for 4 days (days 2-5) guaifenesin 200 mg tablet 200 mg PO TID PRN (Reason: cough) Qty: 10 0RF Stand Alone Forms: Work/School Release Print Language: Palestinian
[2025-03-22 07:25] VITALS: BP 142/73; PULSE 54; RESP 16; TEMP 36.6; O2SAT 99
[2025-03-22 09:13] VITALS: BP 0/0; PULSE 0; RESP 0; TEMP -17.7; TEMP 0
== END 2025-03-22 09:15 | disposition home or self-care (01) ==
PROVIDERS: Emergency Provider Emergency Medicine; PCP Dentist General Practice
DX: R51.9 Headache, unspecified (principal); R42 Dizziness and giddiness; H53.8 Other visual disturbances
CPT/HCPCS: 70450; 96372; 99284; J1885

== ENCOUNTER → 2025-03-22 06:31 | Outpatient (BNV) | payer MEDICAID, SELFPAY | PROVIDERS: Emergency Provider Emergency Medicine; PCP Dentist General Practice; Visit Provider Radiology Diagnostic Radiology | DX: R51.9 Headache, unspecified (principal) | CPT/HCPCS: 70450 ==